=== PATIENT | female | born 1990 | race Caucasian/White ===

== ENCOUNTER 2017-11-18 13:56 | Emergency (ER) | payer OTHER ==
[~2017-11-18] VITALS: Ht 154.9 cm; Wt 84.0 kg
[2017-11-18 14:15] VITALS: BP 140/81; PULSE 76; RESP 16; TEMP 98; O2SAT 99
[2017-11-18 14:19] VITALS: O2SAT 99
--- NOTE | 2017-11-18 14:50 | PD ---
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 Patient was visiting her aunt upstairs and was just informed that her aunt brain . Shortly afterward she was observed staring into space, drooling, and not responding. This is her typical seizure presentation according to her mother. Mother is with her and provides much of the history. Mother states at home, she typically improves after rest and applying ice. States since about 21 years old, she has been experiencing psychogenic, nonepileptic seizures. She is on carbamazepine, citalopram, and lorazepam, and takes her medications as directed. PFSH Past Medical History Diminished Hearing: No Tetanus Vaccination: Unknown ?: Not Social History Alcohol Use: No Tobacco Use: No Substance Use: No Allergies-Medications Reported Meds & Prescriptions Reported Meds & Active Scripts Active Reported Cyclafem 1/35 (Norethindrone-Ethinyl Estradiol) 1-35 Mg-Mcg Tab 1 Tab PO DAILY Metoprolol Tartrate 25 Mg Tab 25 Mg PO DAILY Lorazepam 0.5 Mg Tab 0.5 Mg PO BID PRN Citalopram (Citalopram Hydrobromide) 40 Mg Tab 40 Mg PO DAILY Carbamazepine 200 Mg Tab 200 Mg TID Ranitidine (Ranitidine HCl) 150 Mg Tab 150 Mg PO BID Review of Systems Except as stated in HPI: all other systems reviewed are Neg Physical Exam Narrative GENERAL: Well-nourished, well-developed female in no acute distress. Afebrile. SKIN: Focused skin assessment warm/dry. HEAD: Normocephalic. EYES: No scleral icterus. No injection or drainage. NECK: Supple, trachea midline. No JVD or lymphadenopathy. CARDIOVASCULAR: Regular rate and rhythm without murmurs, gallops, or rubs. RESPIRATORY: Breath sounds equal bilaterally. No accessory muscle use. PSYCHIATRIC: No delusional thought processes. No hallucinations. 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 Rapid response team was called and brought her down to the ED. Patient had just been informed that her aunt is brain when she went into a nonepileptic seizure. Her mother is with her and states this is typical presentation of her seizures. States it typically improves with ice packs and rest. Patient was given ice packs and placed on cardiac telemetry. EKG shows normal sinus rhythm with a rate of [address] changes. Blood glucose is 101. Initially on exam , patient was mildly postictal. She was staring to the left with her tongue sticking out and occasionally drooping. She was not responding to me but aware of her surroundings and able to hold a thermometer in her mouth. The moment her mother mentioned that she usually blows raspberries, the patient began to drool and blow raspberries. This history and physical exam are consistent with PNES. After monitoring, patient was observed ambulating around the ED, back to baseline. She is stable for discharge and outpatient follow-up. She and her mother understand and agree to plan. Diagnosis Primary Impression: Psychogenic nonepileptic seizure Referrals: Primary Care Physician Additional Instructions: Take medications as directed. Follow-up with your primary care physician. Return for worsening symptoms. Med/Other Pt SpecificInfo: Prescription(s) given Disposition: 01 DISCHARGE HOME Condition: Stable Alis Jack Nov 18, 2017 14:50
[2017-11-18] MEDS ORDERED: CYCL1TAB PO (14:52)
[2017-11-18] MEDS ORDERED: CARB200T (14:52)
[2017-11-18] MEDS ORDERED: CITA40TA4 PO (14:52)
[2017-11-18] MEDS ORDERED: METO25TA3 PO (14:52)
[2017-11-18] MEDS ORDERED: RANI150T PO (14:52)
[2017-11-18] MEDS ORDERED: LORA0.5T PO (14:52)
--- NOTE | 2017-11-19 09:27 | EKG ---
Date Performed: 11/18/2017 Time Performed: 14:59:27 PTAGE: 27 years EKG: Sinus rhythm NORMAL ECG NO PREVIOUS TRACING DOCTOR: David Verde Interpretating Date/Time 11/19/2017 09:24:09
== END 2017-11-18 15:55 | disposition home or self-care (01) ==
LOC: NEPC 13:56
DX: G40.89 Other seizures (principal)
CPT/HCPCS: 93005; 99283